=== PATIENT | male | born 1990 | race Caucasian/White ===

== ENCOUNTER 2018-11-22 20:40 | Emergency (ER) | payer MEDICAID ==
[2018-11-23 02:38] LABS: AMPHETAMINE/METHAMPHETAMINE Negative (NEGATIVE); BARBITURATES Negative (NEGATIVE); BENZODIAZEPINES Negative (NEGATIVE); CANNABINOIDS Positive (NEGATIVE); COCAINE Negative (NEGATIVE); OPIATES Negative (NEGATIVE)
[2018-11-23] MEDS: IBUPROFEN 800 MG TAB PO (03:37)
== END 2018-11-23 03:37 | disposition home or self-care (01) ==
LOC: FTE 20:40
DX: T40.7X1A Poisoning by cannabis (derivatives), accidental (unintentional), initial encounter (principal); R07.9 Chest pain, unspecified
CPT/HCPCS: 70450; 71046; 72125; 80307; 99284-25